=== PATIENT | female | born 1975 | race Caucasian/White ===

== ENCOUNTER 2016-11-02 12:50 | Emergency (ER) | payer OTHER ==
[2016-11-02 13:18] VITALS: BP 131/93
--- OUTSIDE RECORDS SUMMARY | 2016-11-02 13:36 | XMS REPORT | Continuity of Care Document ---
:1975 Author Organization [facility] ([facility]) Address [address] [place] [id number] Phone [phone] Care Team Providers Name Role Phone Unavailable Primary Care Provider Unavailable Source Comments This disclosure is being made pursuant to the Care Everywhere program, applicable federal and state laws, and may not contain all informaitonavailable regarding this patient.[facility] ([facility]) Active Allergies and Adverse Reactions Not on File Current Medications Not on file Active Problems Not on file Social History Tobacco Use Types Packs/Day Years Used Date Never Assessed Plan of Care Health Maintenance Due Date Last Done Comments Hepatitis B Vaccine (1 of 3 - Primary Series) 1975 Tdap Vaccine 1986 Lipid Disorder Screening 1993 MMR Vaccine 1993 Td Vaccine 1993 Cervical Cancer Screening 2005 Mammogram 2015 Influenza Vaccine: Seasonal (#1) 04/03/2016 Results from Last 3 Months Not on file
--- NOTE | 2016-11-02 13:41 | ERNOTE ---
Lower Extremity HPI - Narrative Date of Service: 11/02/16 - General Lower Extremities Pain: foot: right Time Seen by Provider: 11/02/16 13:20 Source: patient Exam Limitations: no limitations - Immun/Allergies/Home Medications Immunizations: IMMUNIZATION HX Immunizations Up to Date Yes History of Influenza Vaccine No Hx Pneumococcal Vaccination No Allergies/Adverse Reactions: Allergies Allergy/AdvReac Type Severity Reaction Status Date / Time No Known Allergies Allergy Verified 03/18/16 11:22 Home Medications: HOME MEDICATIONS Naproxen Sodium [Anaprox Ds] 550 mg PO BID #30 tab 03/18/16 [Last Taken Unknown] - History of Present Illness Narrative: Pt. comes in with c/o R distal foot pain after stepping out of bed four days ago and hearing a crunch and feeling sudden pain. Pt. denies any SOB, CP, Numbness, or Tingling. Pt. states that she has been taking naproxen for pain and not weight bearing but denies any relief from this. Pt. states that weight bearing and palpation exacerbates the pain. Review of Systems - Review of Systems Constitutional: Present: no symptoms reported. Absent: recent illness, fever, chills, fatigue, malaise EYE: Present: no symptoms reported ENT: Present: no symptoms reported Respiratory: Present: no symptoms reported. Absent: shortness of breath, cough , wheezing Cardiology: Present: no symptoms reported. Absent: chest pain, palpitations, edema Gastrointestinal/Abdominal: Present: no symptoms reported Genitourinary: Present: no symptoms reported Musculoskeletal: Present: joint pain - R foot. Absent: back pain Skin: Present: no symptoms reported Neurological: Present: no symptoms reported. Absent: headache, dizziness/light- headedness, numbness, tingling All Other Systems: All systems neg except as marked - Patient's Past Medical History Patient History - Medical: No pertinent hx Patient History - Cardiac/Respiratory: Asthma Patient History - Cancer: No Hx of Cancer Patient History - Surgical Procedures: Tubal Ligation, Other Patient History - Other: None - Social History Living Situations: home Abuse History: No History of abuse Psych History: No pertinent hx Does anyone smoke in the home?: Yes Smoking Status: Current some day smoker Have you smoked in the past 12 months: Yes Do you dip or chew tobacco: No Alcohol Use: occasionally Drug Use: none - Immunizations Immunizations Up to Date: Yes Hx Pneumococcal Vaccination: No History of Influenza Vaccine: No Physical Exam - Physical Exam General Appearance: Present: wd/wn, alert, no apparent distress Eye Exam: Normal inspection: bilateral, PERRL: bilateral, EOMI: bilateral Neck: Present: normal inspection Respiratory: Present: no respiratory distress, normal breath sounds, no accessory muscle use, chest nontender, lungs clear Cardiovascular/Chest: Present: regular rate, rhythm, no murmur, normal peripheral pulses Back Exam: Present: normal inspection Extremity Exam: Present: pedal edema - R foot, bony tenderness - R dorsal and volar distal foot, other - R foot bruising. 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 in cam boot and have her follow up with ortho next week. Pt. also needs to be seen by PCP for further work up as these fractures are spontaneous. - Results and Orders Patient's Lab Results:: I have reviewed the patient's lab results. - Vital Signs Patient's Vital Signs:: I have reviewed the patient's vital signs. Vital Signs: Vital Signs 11/02/16 13:10 Temperature 36.8 C Pulse Rate 96 Respiratory 18 Rate Blood Pressure 131/93 O2 Sat by Pulse 96 Oximetry - X-Ray X-Ray #1 X-Ray: foot Interpretation: Reviewed by me X-ray Comments: distal 1st phalanx and 2nd and 3rd prox metatarsal fractures nondisplaced - Progress/Reassessment Chief Complaint: Lower Extremity Pain/ Injury Departure Clinical Impression: Metatarsal fracture, pathologic Qualifiers: Encounter type: initial encounter Laterality: right Qualified Code(s): M84.477A - Pathological fracture, right toe(s), initial encounter for fracture - Departure Disposition: Home self-care Condition: Good Instructions: Metatarsal Fracture Additional Instructions: Please follow up with primary provider in 2-3 days, and follow up with orthopedics next week as scheduled. May take Tylenol 1000mg three times a day for pain.
[2016-11-02 13:49] LABS: Hematocrit 43.9 % (37.0-47.0); Hemoglobin 14.7 gm/dL (12.5-16.0); Mean Cell Volume 95.4 fl (78-100); Mean Corpuscular Hgb Conc 33.5 g/dl (32-36); Mean Platelet Volume 8.7 fl (6.0-9.5); Neutrophil # 4.7 K/mm3 (1.3-6.0); Platelet Count 280 K/mm3 (150-450); Red Cell Distribution Width 11.9 % (11.5-14.0); White Blood Count 7.7 K/mm3 (4.0-10.5)
[2016-11-02 14:00] LABS: Albumin * 3.8 gm/dl (3.4-5.0); Anion Gap 19.4 mmol/L (6.8-13.8); BUN/Creatinine Ratio 14.8 (9.0-21.6); Bilirubin, Total 0.2 mg/dL (0.0-1.1); Ca. Corrected For Albumin 8.4 mg/dL (8.4-10.2); Calcium * 8.6 mg/dL (7.9-10.9); Carbon Dioxide 20.5 mmol/L (24-32.6); Potassium 3.9 mmol/L (3.4-4.6); Total Protein 8.5 gm/dL (6.2-8.2)
== END 2016-11-02 14:51 | disposition home or self-care (01) ==
LOC: ER 12:50
PROC: 2W3SX1Z Immobilization of Right Foot using Splint (ICD-10-PCS; principal; 2016-11-02)
DX: M84.477A Pathological fracture, right toe(s), initial encounter for fracture (principal); X58.XXXA Exposure to other specified factors, initial encounter; Y92.003 Bedroom of unspecified non-institutional (private) residence as the place of occurrence of the external cause

== ENCOUNTER 2017-06-03 13:24 | Emergency (ER) | payer OTHER ==
[2017-06-03 13:35] VITALS: BP 172/100
--- NOTE | 2017-06-03 13:46 | ERNOTE ---
ENT HPI Time Seen by Provider: 06/03/17 13:34 Source: patient Exam Limitations: no limitations - Immun/Allergies/Home Medications Immunizations: IMMUNIZATION HX Immunizations Up to Date Yes History of Influenza Vaccine No Hx Pneumococcal Vaccination No Allergies/Adverse Reactions: Allergies Allergy/AdvReac Type Severity Reaction Status Date / Time No Known Allergies Allergy Verified 03/18/16 11:22 Home Medications: HOME MEDICATIONS HYDROcodone/ACETAMINOPHEN [[place] 5-325] 1 each PO TID #12 tablet 06/03/17 [Last Taken Unknown] Ibuprofen 800 mg PO 06/03/17 [Last Taken 06/03/17 10:30] Penicillin V Potassium [Pen-Vee K] 500 mg PO QID #40 tab 06/03/17 [Last Taken Unknown] - History of Present Illness Narrative: here for severe dental pain in tooth number 16 an 17. pt states that she has an appointment with a dentist however it is not until July. She also states that this has been going on for approximately 2 weeks. Review of Systems - Review of Systems Constitutional: Present: no symptoms reported EYE: Present: no symptoms reported ENT: Present: See HPI Respiratory: Present: no symptoms reported Cardiology: Present: no symptoms reported Gastrointestinal/Abdominal: Present: no symptoms reported Genitourinary: Present: no symptoms reported Musculoskeletal: Present: no symptoms reported - Patient's Past Medical History Patient History - Medical: No pertinent hx Patient History - Cardiac/Respiratory: Asthma Patient History - Cancer: No Hx of Cancer Patient History - Surgical Procedures: Tubal Ligation, Other Patient History - Other: None - Social History Living Situations: home Abuse History: No History of abuse Psych History: No pertinent hx Does anyone smoke in the home?: Yes Alcohol Use: occasionally Drug Use: none - Immunizations Immunizations Up to Date: Yes Hx Pneumococcal Vaccination: No History of Influenza Vaccine: No Physical Exam - Physical Exam General Appearance: Present: wd/wn, alert, no apparent distress Head Exam: Present: normal inspection Ears, Nose, Throat: Present: other - patient has extremely poor oral hygiene she has a fractured tooth #32 with multiple caries and teeth #31,32 and 33 she has a fracture of the tooth #17 and 16 she has multiple caries in those regions she has swelling of the gingiva in that area no open lesions or abscesses noted. ED Progress - Vital Signs Patient's Vital Signs:: I have reviewed the patient's vital signs. Vital Signs: Vital Signs 06/03/17 13:31 Temperature 36.4 C L Pulse Rate 70 Respiratory 13 Rate Blood Pressure 172/100 O2 Sat by Pulse 98 Oximetry - Progress/Reassessment Chief Complaint: Dental Problem Departure Clinical Impression: Pain due to dental caries - Departure Disposition: Home self-care Condition: Fair Instructions: Dental Care and Dentist Visits Prescriptions: HYDROcodone/ACETAMINOPHEN [[place] 5-325] 1 each PO TID #12 tablet Penicillin V Potassium [Pen-Vee K] 500 mg PO QID #40 tab
== END 2017-06-03 13:48 | disposition home or self-care (01) ==
LOC: ER 13:24
DX: K02.9 Dental caries, unspecified (principal)